=== PATIENT | female | born 1995 | race American Indian/Alaskan Native ===

== ENCOUNTER 2016-10-16 15:01 | Emergency (ER) | payer BC ==
[2016-10-16 15:02] VITALS: BMI 21.4
[2016-10-16 15:08] VITALS: RESP 16; TEMP 98.9; O2SAT 100
--- NOTE | 2016-10-16 15:41 | C.PDOC ---
History Of Present Illness Patient [place] [facility] [place] diagnosis of spontaneous miscarriage. She is approximately 11-12 weeks . Ultrasound done at 9 weeks showed no heart beat. She started bleeding this morning and evaluation in the ED was found to to have no IUP on ultrasound. Hemoglobin decreased from 12 to 9 over the course of the ED visit. She remained tachycardic and lightheaded requiring IV fluids. She was transferred here for evaluation by Dr García. Time Seen by Provider: 10/16/16 15:23 Chief Complaint (Nursing): Female Genitourinary History Per: Patient History/Exam Limitations: no limitations Current Symptoms Are (Timing): Still Present Severity: Moderate : 1 Para: 0 Past Medical History Vital Signs: Last Vital Signs Temp 98.9 F 10/16/16 15:02 Pulse 99 H 10/16/16 15:02 Resp 16 10/16/16 15:02 BP 111/72 10/16/16 15:02 Pulse Ox 100 10/16/16 15:02 - Medical History PMH: No Chronic Diseases Surgical History: No Surg Hx Family History: States: Unknown Family Hx - Social History Hx Alcohol Use: No Hx Substance Use: No - Immunization History Hx Tetanus Toxoid Vaccination: No Hx Influenza Vaccination: No Hx Pneumococcal Vaccination: No Review Of Systems Except As Marked, All Systems Reviewed And Found Negative. Genitourinary: Positive for: Vaginal Bleeding, Pelvic Pain Physical Exam - Physical Exam Appears: Well, No Acute Distress Skin: Normal Color, Dry Eye(s): bilateral: Normal Inspection, PERRL, EOMI Oral Mucosa: Moist Chest: Symmetrical Cardiovascular: Rhythm Regular Respiratory: Normal Breath Sounds Gastrointestinal/Abdominal: Soft, No Tenderness, No Distention, No Guarding Pelvic: Other (Done by Dr García. He states that he removed remaining POC from cervix and the os is now closed and bleeding stopped.) Neurological/Psych: Oriented x3, Normal Speech, Normal Cognition ED Course And Treatment O2 Sat by Pulse Oximetry: 100 Disposition Counseled Patient/Family Regarding: Diagnosis, Need For Followup - Disposition Referrals: Lobo García [Staff Provider] - Disposition: HOME/ ROUTINE Disposition Time: 15:47 Condition: IMPROVED Additional Instructions: Prescriptions for Keflex 500mg TID and Methergine 0.2mg QID for today. Follow up with Dr García in the office later this week as directed. Instructions: Spontaneous Miscarriage (ED) Forms: [employer] ([place]ian) - Clinical Impression Clinical Impression: Miscarriage
[2016-10-16 16:13] VITALS: BP 98/66; PULSE 98
== END 2016-10-16 16:20 | disposition home or self-care (01) ==
LOC: C.ER 15:01
DX: O03.9 Complete or unspecified spontaneous abortion without complication (principal)